=== PATIENT | female | born 1990 | race African-American/Black ===

== ENCOUNTER → 2016-06-26 | Outpatient (CLI) | payer BC ==
[~2016-06-26] MED LIST: ACET65TA; BISOPROLOL; DEPAKOTE; FEROUS SULFATE; FERROUS SULFATE
[2016-06-26 15:17] LABS: BASO % 0.7 % (0.0-1.0); EOS # 0.1 K/mm3 (0.0-0.50); EOS % 1.7 % (0.0-3.0); LYMPH # 2.2 K/mm3 (1.5-6.5); LYMPH % 47.1 % (24.0-44.0); MEAN CORPUSCULAR HEMOGLOBIN 30.1 pg (27.0-33.0); MEAN CORPUSCULAR VOLUME 93.9 fl (80.0-96.0); MONO # 0.2 K/mm3 (0.0-0.8); MONO % 4.3 % (0.0-5.0); NEUTROPHILS # 1.9 K/mm3 (1.8-7.7); NEUTROPHILS % 43.7 % (36.0-66.0); RED CELL DISTRIBUTION WIDTH 13.8 % (11.5-14.5); WHITE BLOOD COUNT 4.4 K/mm3 (4.0-10.0)
[2016-06-26 15:22] LABS: ALBUMIN 4.1 GM/DL (3.2-5.2); ALKALINE PHOSPHATASE 75 U/L (45-117); ALT/SGPT 21 U/L (12-78); ANION GAP 6 MEQ/L (8-16); AST/SGOT 22 U/L (15-37); BILIRUBIN,TOTAL 0.3 MG/DL (0.2-1.0); BLOOD UREA NITROGEN 11 MG/DL (7-18); CALCIUM LEVEL 10.2 MG/DL (8.5-10.1); CARBON DIOXIDE LEVEL 25 MEQ/L (21-32); CHLORIDE LEVEL 108 MEQ/L (98-107); CHOLESTEROL LEVEL 181 MG/DL (<200); CREATININE FOR GFR 0.78 MG/DL (0.55-1.02); FREE T4 1.03 NG/DL (0.76-1.46); GLOMERULAR FILTRATION RATE > 60.0 (>60); GLUCOSE, FASTING 88 MG/DL (70-105); POTASSIUM SERUM 4.3 MEQ/L (3.5-5.1); SODIUM LEVEL 139 MEQ/L (136-145); TOTAL PROTEIN 8.2 GM/DL (6.4-8.2); TRIGLYCERIDES LEVEL 84 MG/DL (<150)
== END ==
LOC: M LAB 13:40
PROVIDERS: ATTEND Physician Assistant
DX: Z00.00 Encounter for general adult medical examination without abnormal findings (principal); Z83.3 Family history of diabetes mellitus

== ENCOUNTER → 2016-06-26 | Outpatient (CLI) | payer BC ==
[2016-06-26 15:32] LABS: BASO # 0.1 K/mm3 (0.0-0.2); BASO % 1.3 % (0.0-1.0); EOS # 0.1 K/mm3 (0.0-0.50); EOS % 2.2 % (0.0-3.0); LARGE UNSTAINED CELL # 0.1 K/mm3 (0.0-0.4); LARGE UNSTAINED CELL % 2.5 % (0.0-4.0); LYMPH % 44.7 % (24.0-44.0); MEAN CORPUSCULAR HEMOGLOBIN 30.5 pg (27.0-33.0); MEAN CORPUSCULAR HGB CONC 32.6 g/dl (32.0-36.5); MEAN CORPUSCULAR VOLUME 93.7 fl (80.0-96.0); MONO # 0.2 K/mm3 (0.0-0.8); MONO % 4.7 % (0.0-5.0); NEUTROPHILS # 1.9 K/mm3 (1.8-7.7); NEUTROPHILS % 44.6 % (36.0-66.0); PLATELET COUNT, AUTOMATED 257 k/mm3 (150-450); RED CELL DISTRIBUTION WIDTH 13.8 % (11.5-14.5); WHITE BLOOD COUNT 4.3 K/mm3 (4.0-10.0)
== END ==
LOC: M LAB 13:45
PROVIDERS: ATTEND Allergy & Immunology Allergy
DX: L50.1 Idiopathic urticaria (principal); L50.3 Dermatographic urticaria; Z91.010 Allergy to peanuts; Z91.011 Allergy to milk products; Z91.012 Allergy to eggs; Z91.018 Allergy to other foods

== ENCOUNTER → 2016-07-15 | Outpatient (REF) | payer BC ==
[2016-07-18 08:42] LABS: THYROID PEROXIDASE ANTIBODY < 28.0 U/ML (<60.0)
== END ==
LOC: M LAB REF 17:00
PROVIDERS: ATTEND Surgery
DX: J01.00 Acute maxillary sinusitis, unspecified (principal)

== ENCOUNTER → 2016-08-23 | Outpatient (CLI) | payer BC | LOC: M LAB 14:14 | PROVIDERS: ATTEND Nurse Practitioner Adult Health | DX: N92.6 Irregular menstruation, unspecified (principal) ==

== ENCOUNTER → 2016-09-14 | Outpatient (CLI) | payer BC ==
--- NOTE | 2016-09-14 13:19 | REP ---
First trimester obstetric ultrasound: Balloon the study is performed with transabdominal imaging. There is an intrauterine gestational sac with a pole. The heart rate is 165 beats per minute. The pole crown-rump length is 1.2 cm corresponding 7 weeks 3 days gestational age. The JOSE FRANCISCO is 04/30/2017. There is no subchorionic hematoma. Maternal adnexa and cul-de-sac demonstrate a left ovarian 5.4 cm cyst, likely a corpus luteum. There is no free fluid in the pelvis. Signed by Rashad Gonzalez MD 09/14/2016 01:10 P
[2016-09-14 14:11] LABS: BASO % 0.3 % (0.0-1.0); EOS # 0.1 K/mm3 (0.0-0.50); EOS % 0.9 % (0.0-3.0); LYMPH % 26.3 % (24.0-44.0); MEAN CORPUSCULAR HEMOGLOBIN 30.4 pg (27.0-33.0); MEAN CORPUSCULAR HGB CONC 32.9 g/dl (32.0-36.5); MEAN CORPUSCULAR VOLUME 92.6 fl (80.0-96.0); MONO # 0.5 K/mm3 (0.0-0.8); MONO % 7.4 % (0.0-5.0); NEUTROPHILS # 4.2 K/mm3 (1.8-7.7); NEUTROPHILS % 62.3 % (36.0-66.0); RED CELL DISTRIBUTION WIDTH 14.4 % (11.5-14.5); WHITE BLOOD COUNT 6.8 K/mm3 (4.0-10.0)
[2016-09-14 15:20] LABS: GLUCOSE,RANDOM 74 MG/DL (LESS THAN 200)
[2016-09-15 09:20] LABS: HBsAg Prenatal NEGATIVE (NEGATIVE)
== END ==
LOC: M RAD 12:24
PROVIDERS: ATTEND Nurse Practitioner Adult Health
DX: Z34.81 Encounter for supervision of other normal pregnancy, first trimester (principal); Z3A.01 Less than 8 weeks gestation of pregnancy; N83.292 Other ovarian cyst, left side

== ENCOUNTER → 2016-11-30 | Outpatient (CLI) | payer BC ==
--- NOTE | 2016-11-30 16:36 | REP ---
Obstetric sonography: History: Supervision of , for anatomy. Findings: Scanning through the gravid uterus demonstrates a viable single intrauterine gestation in a variable lie. motion is observed and heart rate is recorded at 155 beats per minute. An anterior grade 0 placenta is seen without evidence of previa. Amniotic fluid is subjectively normal. Closed cervical length is measured at 4.3 cm transabdominally. There is a 2.9 cm cyst in the left ovary, most likely corpus luteum. No other extrauterine abnormality is observed. No anomaly is seen. The heart and spine views were less than optimal due to position. The following additional anatomic structures are identified and felt to be sonographically unremarkable: cranium, choroid plexus, cavum, cerebellum and posterior fossa, face and profile, lungs, diaphragm, left-sided stomach, abdominal wall cord insertion, three-vessel umbilical cord, kidneys and bladder, upper and lower extremities. Biometry chart: BPD 4.4 cm = 19 weeks 2 days HC 16.6 cm = 19 weeks 2 days AC 14.0 cm = 19 weeks 3 days FL 2.9 cm = 18 weeks 6 days HL 2.9 cm = 19 weeks 3 days HC/AC ratio, normal 1.19. Cephalic index normal 0.73. Estimated weight 279 grams, 0 pounds 9 ounces, 57th percentile for 18 weeks 6 days. Impression: Viable single intrauterine gestation at 19 weeks 2 days by today's composite criteria. JOSE FRANCISCO by today's sonography April 24, 2017. cardiac views and spine views less than optimally achieved today due to position. Signed by Sudhakar Rangel MD 11/30/2016 05:24 P
== END ==
LOC: M RAD 14:22
PROVIDERS: ATTEND Obstetrics & Gynecology
DX: Z36.2 Encounter for other antenatal screening follow-up (principal)

== ENCOUNTER → 2017-02-09 | Outpatient (CLI) | payer BC ==
[2017-02-09 10:06] LABS: BASO % 0.1 % (0.0-1.0); EOS # 0.1 10^3/uL (0.0-0.50); EOS % 0.4 % (0.0-3.0); IMMATURE GRANULOCYTE % 1.3 % (0-0); LYMPH # 1.4 10^3/uL (1.5-6.5); LYMPH % 12.9 % (24.0-44.0); MEAN CORPUSCULAR HGB CONC 33.5 g/dl (32.0-36.5); MEAN CORPUSCULAR VOLUME 98.4 fl (80.0-96.0); MONO # 0.6 10^3/uL (0.0-0.8); NEUTROPHILS # 8.9 10^3/uL (1.8-7.7); NEUTROPHILS % 80.3 % (36.0-66.0); PLATELET COUNT, AUTOMATED 174 10^3/uL (150-450); WHITE BLOOD COUNT 11.2 10^3/uL (4.0-10.0)
--- NOTE | 2017-02-09 15:43 | REP ---
Obstetric ultrasound for anatomy follow-up: The prior study dated 12/28/2016 did not adequately demonstrate the cardiac, four-chamber view of the cardiac right and left ventricular outflow tracts. Study today is performed for follow-up of these structures. There is a single intrauterine gestation in a vertex presentation. There is movement and cardiac activity. heart rate is 155 beats per minute. The placenta is anterior without previa or abruptio with grade zero maturity. The amniotic fluid volume subjectively is normal. The amniotic fluid index of 11.9 (9.2 - 23.1). The maternal adnexa and cul-de-sac are unremarkable. By the ultrasound today gestational age is 30 weeks 0 days with an JOSE FRANCISCO of 04/20/2017. By the first ultrasound 29 weeks 3 days. By LMP 29 weeks 0 days. weight is 1565 grams (3 pounds, 7 ounces). This is the 75th percentile for 29 weeks 0 days. anatomy: On the study today the four-chamber view of the heart and the cardiac right and left ventricular outflow tracts are adequately demonstrated and are unremarkable. The remainder of the anatomy was previously unremarkable. Impression: There are no anomalies. Signed by Rashad Gonzalez MD 02/09/2017 03:34 P
== END ==
LOC: M LAB 08:29
PROVIDERS: ATTEND Obstetrics & Gynecology
DX: Z34.82 Encounter for supervision of other normal pregnancy, second trimester (principal); Z3A.30 30 weeks gestation of pregnancy

== ENCOUNTER → 2017-02-14 | Outpatient (CLI) | payer BC | LOC: M LAB 07:06 | PROVIDERS: ATTEND Obstetrics & Gynecology | DX: R73.02 Impaired glucose tolerance (oral) (principal) ==

== ENCOUNTER → 2017-04-16 | Outpatient (CLI) | payer BC | LOC: M RAD 14:30 | DX: O26.843 Uterine size-date discrepancy, third trimester (principal) ==

== ENCOUNTER → 2017-12-19 | Outpatient (CLI) | payer OTHER ==
[2017-12-19 18:38] LABS: INR 0.85; PROTHROMBIN TIME 11.7 SECONDS (12.1-14.4)
[2017-12-19 18:52] LABS: ALBUMIN/GLOBULIN RATIO 1.11 (1.00-1.93); ALKALINE PHOSPHATASE 91 U/L (45-117); ALT/SGPT 23 U/L (12-78); ANION GAP 5 MEQ/L (8-16); AST/SGOT 18 U/L (7-37); BILIRUBIN,TOTAL 0.2 MG/DL (0.2-1.0); BLOOD UREA NITROGEN 10 MG/DL (7-18); CALCIUM LEVEL 10.6 MG/DL (8.5-10.1); CARBON DIOXIDE LEVEL 26 MEQ/L (21-32); CHLORIDE LEVEL 109 MEQ/L (98-107); CREATININE FOR GFR 0.86 MG/DL (0.55-1.30); GLOMERULAR FILTRATION RATE > 60.0 (>60); GLUCOSE, FASTING 90 MG/DL (70-100); POTASSIUM SERUM 4.5 MEQ/L (3.5-5.1); SODIUM LEVEL 140 MEQ/L (136-145); TOTAL PROTEIN 7.6 GM/DL (6.4-8.2)
== END ==
LOC: M LAB 16:52
DX: E83.52 Hypercalcemia (principal); R79.1 Abnormal coagulation profile
CPT/HCPCS: 80053

== ENCOUNTER → 2018-12-10 | Outpatient (CLI) | payer BC ==
[~2018-12-10] MED LIST changes: +HAIR1TAB2 PO; +IBUP80TA PO; +LEVOTAB10 PO; +METO1TAB87 PO; +PREP1TAB3 PO; +ROBA500T PO; +TRI-TAB PO; +TYLE500T78 PO; +VITA250L PO; +VITA50005 PO
--- NOTE | 2018-12-10 18:17 | REP ---
Clinical: Lower back pain I . Technique: AP, lateral, bilateral oblique, and coned-down views. Findings: Alignment and lordosis is maintained. The vertebral bodies including transverse process and spinous processes are intact and normal. There is no evidence for acute fracture / compression injury or subluxation. No evidence for spondylolysis or spondylolisthesis. No significant degenerative change is noted. Impression: Normal lumbosacral spine radiograph series. Electronically Signed by Tyrell Tovar MD 12/10/2018 06:09 P
--- NOTE | 2018-12-10 19:17 | REP ---
Clinical: Right second digit foreign body. Technique: Real time cowart scale and color evaluation using linear high frequency transducer. Findings: An ovoid anechoic cyst-like structure in the subcutaneous tissues at the base of the second digit along the palmar side is identified and otherwise nonspecific. Correlation with physical examination, history, and x-ray may be warranted. Impression: Well delineated anechoic structure in the subcutaneous tissue. Correlation with x-ray and history/physical examination recommended. Electronically Signed by Tyrell Tovar MD 12/10/2018 07:08 P
== END ==
LOC: M RAD 16:36
PROVIDERS: ATTEND Nurse Practitioner Adult Health
DX: S60.459A Superficial foreign body of unspecified finger, initial encounter (principal); M54.5 Low back pain

== ENCOUNTER 2018-12-25 03:26 | Emergency (ER) | payer BC ==
[~2018-12-25] VITALS: Ht 162.6 cm; Wt 96.8 kg
[2018-12-25] MEDS ORDERED: IBUP-1022 PO ×2 (04:11)
[2018-12-25] MEDS ORDERED: [UNRECOGNIZED DRUG - CODE] PO (04:11)
[2018-12-25] MEDS ORDERED: PHEN-815 PO (04:11)
[2018-12-25 04:39] LABS: INFLUENZA A AMPLIFICATION NEGATIVE (NEGATIVE); INFLUENZA B AMPLIFICATION NEGATIVE (NEGATIVE)
[2018-12-25] MEDS ORDERED: IBUPROFEN 800 MG TAB PO ONE (06:30)
[2018-12-25] MEDS ORDERED: LIDOCAINE VISCOUS 2% SOLN 15ML UDC SS ONE (06:30)
[2018-12-25] MEDS ORDERED: IBUP80TA PO (06:32)
[2018-12-25 06:40] VITALS: BP 111/75
== END 2018-12-25 06:50 | disposition home or self-care (01) ==
LOC: M ED 03:26
DX: J02.9 Acute pharyngitis, unspecified (principal); Z79.899 Other long term (current) drug therapy

== ENCOUNTER 2019-01-20 16:00 | Outpatient (RCR) | payer BC ==
[~2019-01-20 16:00] MED LIST changes: +IBUP-1022 PO; +PHEN-815 PO; +[UNRECOGNIZED DRUG - CODE] PO
== END 2019-01-25 ==
LOC: M PT 16:00
PROVIDERS: ATTEND Nurse Practitioner Adult Health
DX: M54.5 Low back pain (principal)

== ENCOUNTER 2019-02-17 14:30 | Outpatient (RCR) | payer BC | END 2019-02-25 | LOC: M PT 14:30 | PROVIDERS: ATTEND Nurse Practitioner Adult Health | DX: M54.5 Low back pain (principal) ==

== ENCOUNTER 2019-02-27 16:09 | Outpatient (RCR) | payer BC | END 2019-03-28 | LOC: M PT 16:09 | PROVIDERS: ATTEND Nurse Practitioner Adult Health | DX: M54.5 Low back pain (principal) ==

== ENCOUNTER → 2019-09-16 | Outpatient (CLI) | payer BC, MEDICAID | LOC: M LAB 15:08 | PROVIDERS: ATTEND Nurse Practitioner Adult Health | DX: Z11.1 Encounter for screening for respiratory tuberculosis (principal) ==

== ENCOUNTER 2019-10-15 12:44 | Outpatient (RCR) | payer BC, MEDICAID | END 2019-10-27 | disposition home or self-care (01) | LOC: M PT 12:44 | PROVIDERS: ATTEND Physician Assistant | DX: M54.5 Low back pain (principal) ==

== ENCOUNTER → 2019-10-31 | Outpatient (CLI) | payer BC, MEDICAID | LOC: M LAB 14:23 | PROVIDERS: ATTEND Physician Assistant | DX: Z11.9 Encounter for screening for infectious and parasitic diseases, unspecified (principal) ==

== ENCOUNTER → 2020-02-13 | Outpatient (CLI) | payer BC, MEDICAID ==
[2020-02-13 18:07] LABS: HEMOGLOBIN A1c 5.4 %
[2020-02-13 18:11] LABS: BASO % 0.7 % (0.0-1.0); EOS # 0.1 10^3/uL (0.0-0.5); EOS % 1.5 % (0.0-3.0); HEMATOCRIT 40.9 % (36.0-47.0); HEMOGLOBIN 13.5 g/dl (12.0-15.5); LYMPH # 2.6 10^3/uL (1.5-5.0); LYMPH % 43.6 % (24.0-44.0); MEAN CORPUSCULAR HEMOGLOBIN 31.7 pg (27.0-33.0); MONO # 0.6 10^3/uL (0.0-0.8); MONO % 9.3 % (0.0-5.0); NEUTROPHILS # 2.7 10^3/uL (1.5-8.5); NEUTROPHILS % 44.6 % (36.0-66.0); PLATELET COUNT, AUTOMATED 277 10^3/uL (150-450); RED BLOOD COUNT 4.26 10^6/uL (4.00-5.40)
[2020-02-13 18:30] LABS: ALBUMIN 3.7 GM/DL (3.2-5.2); ALT/SGPT 17 U/L (12-78); BILIRUBIN,TOTAL 0.2 MG/DL (0.2-1.0); BLOOD UREA NITROGEN 11 MG/DL (7-18); CALCIUM LEVEL 10.8 MG/DL (8.5-10.1); CARBON DIOXIDE LEVEL 26 MEQ/L (21-32); CHLORIDE LEVEL 108 MEQ/L (98-107); CHOLESTEROL LEVEL 196 MG/DL (<200); CHOLESTEROL RISK RATIO 3.213 (<5); CREATININE FOR GFR 0.86 MG/DL (0.55-1.30); FERRITIN 16 NG/ML (8-252); FREE T4 0.99 NG/DL (0.76-1.46); GLOMERULAR FILTRATION RATE > 60.0 (>60); GLUCOSE, FASTING 99 MG/DL (70-100); HDL CHOLESTEROL 61 MG/DL (>40); IRON (FE) 83 UG/DL (50-170); LDL CHOLESTEROL 99 MG/DL (<100); NON-HDL-C 135 MG/DL; POTASSIUM SERUM 4.4 MEQ/L (3.5-5.1); SODIUM LEVEL 140 MEQ/L (136-145); TOTAL PROTEIN 7.7 GM/DL (6.4-8.2); TRIGLYCERIDES LEVEL 179 MG/DL (<150)
[2020-02-13 18:31] LABS: PTH INTACT 252.1 PG/ML (18.5-88.0); TOTAL 25(OH) VITAMIN D 31.6 NG/ML (30.0-100.0)
== END ==
LOC: M LAB 16:30
PROVIDERS: ATTEND Physician Assistant
DX: Z00.01 Encounter for general adult medical examination with abnormal findings (principal)

== ENCOUNTER → 2020-04-07 | Outpatient (CLI) | payer BC, MEDICAID ==
--- NOTE | 2020-04-07 15:33 | REP ---
INDICATION: HYPERPARATHYROIDISM. COMPARISON: None. TECHNIQUE: 27.2 mCi of technetium 99 M sestamibi is injected and standard 15 and 3 hour delayed images of the neck and upper chest are acquired. A 3D acquisition is acquired for SPECT imaging and reconstructed axial, coronal and sagittal images are reviewed. FINDINGS: Initial 15 minutes delay images demonstrate the expected salivary and thyroid gland uptake bilaterally. Delayed scan images show no evidence of retained uptake in the neck or abnormal mediastinal focus to suggest parathyroid adenoma. SPECT reconstruction and 3D images showed no additional abnormality. IMPRESSION: Negative radionuclide parathyroid scintigraphy. <Electronically signed by Damian Rangel > 04/07/20 [id number]
== END ==
LOC: M RAD 09:56
PROVIDERS: ATTEND Internal Medicine Endocrinology, Diabetes & Metabolism
DX: E21.3 Hyperparathyroidism, unspecified (principal)
CPT/HCPCS: 78803; A9500

== ENCOUNTER → 2020-05-14 | Outpatient (REF) | payer BC, MEDICAID ==
[2020-05-14 19:08] LABS: CALCIUM, URINE 14.1 MG/DL; CREATININE, URINE 58.7 MG/DL
== END ==
LOC: M LAB REF 13:54
PROVIDERS: ATTEND Internal Medicine Endocrinology, Diabetes & Metabolism
DX: E21.3 Hyperparathyroidism, unspecified (principal)

== ENCOUNTER → 2020-10-14 | Outpatient (CLI) | payer BC, MEDICAID | LOC: M LAB 12:48 | PROVIDERS: ATTEND Surgery | DX: E21.3 Hyperparathyroidism, unspecified (principal) ==

== ENCOUNTER 2020-10-15 21:27 | Emergency (ER) | payer BC, MEDICAID ==
[~2020-10-15] VITALS: Ht 162.6 cm; Wt 103.8 kg
[2020-10-15 21:28] VITALS: BP 144/95
== END 2020-10-15 22:16 | disposition left against medical advice (07) ==
LOC: M ED 21:27
DX: Z53.21 Procedure and treatment not carried out due to patient leaving prior to being seen by health care provider (principal)

== ENCOUNTER → 2020-12-20 | Outpatient (CLI) | payer BC, MEDICAID ==
[2020-12-20 15:43] LABS: BLOOD UREA NITROGEN 12 MG/DL (7-18); CALCIUM LEVEL 9.3 MG/DL (8.5-10.1); CARBON DIOXIDE LEVEL 28 MEQ/L (21-32); CHLORIDE LEVEL 107 MEQ/L (98-107); CREATININE FOR GFR 0.79 MG/DL (0.55-1.30); GLOMERULAR FILTRATION RATE > 60.0 (>60); GLUCOSE, FASTING 82 MG/DL (70-100); POTASSIUM SERUM 4.2 MEQ/L (3.5-5.1); SODIUM LEVEL 139 MEQ/L (136-145)
[2020-12-20 15:50] LABS: TOTAL 25(OH) VITAMIN D 24.1 NG/ML (30.0-100.0)
== END ==
LOC: M LAB 14:31
PROVIDERS: ATTEND Nurse Practitioner Family
DX: E21.3 Hyperparathyroidism, unspecified (principal); E55.9 Vitamin D deficiency, unspecified

== ENCOUNTER → 2020-12-20 | Outpatient (CLI) | payer BC, MEDICAID ==
[2020-12-20 15:21] LABS: BASO # 0.1 10^3/uL (0.0-0.2); EOS # 0.1 10^3/uL (0.0-0.5); EOS % 2.5 % (0.0-3.0); HEMATOCRIT 37.9 % (36.0-47.0); HEMOGLOBIN 12.3 g/dl (12.0-15.5); LYMPH # 2.3 10^3/uL (1.5-5.0); MEAN CORPUSCULAR HEMOGLOBIN 30.7 pg (27.0-33.0); MEAN CORPUSCULAR HGB CONC 32.5 g/dl (32.0-36.5); MEAN CORPUSCULAR VOLUME 94.5 fl (80.0-96.0); MONO # 0.5 10^3/uL (0.0-0.8); MONO % 9.9 % (2.0-8.0); NEUTROPHILS # 2.3 10^3/uL (1.5-8.5); NEUTROPHILS % 43.2 % (36.0-66.0); PLATELET COUNT, AUTOMATED 373 10^3/uL (150-450); RED BLOOD COUNT 4.01 10^6/uL (4.00-5.40); WHITE BLOOD COUNT 5.3 10^3/uL (4.0-10.0)
[2020-12-20 15:52] LABS: ALBUMIN 3.7 GM/DL (3.2-5.2); ALT/SGPT 21 U/L (12-78); BILIRUBIN,TOTAL 0.3 MG/DL (0.2-1.0); BLOOD UREA NITROGEN 12 MG/DL (7-18); CALCIUM LEVEL 9.5 MG/DL (8.5-10.1); CARBON DIOXIDE LEVEL 27 MEQ/L (21-32); CHLORIDE LEVEL 107 MEQ/L (98-107); CHOLESTEROL LEVEL 182 MG/DL (<200); CHOLESTEROL RISK RATIO 3.084 (<5); CREATININE FOR GFR 0.78 MG/DL (0.55-1.30); GLOMERULAR FILTRATION RATE > 60.0 (>60); GLUCOSE, FASTING 80 MG/DL (70-100); HDL CHOLESTEROL 59 MG/DL (>40); LDL CHOLESTEROL 98 MG/DL (<100); NON-HDL-C 123 MG/DL; POTASSIUM SERUM 4.2 MEQ/L (3.5-5.1); SODIUM LEVEL 139 MEQ/L (136-145); TOTAL PROTEIN 7.5 GM/DL (6.4-8.2); TRIGLYCERIDES LEVEL 126 MG/DL (<150)
[2020-12-20 20:56] LABS: HEMOGLOBIN A1c 5.3 %
== END ==
LOC: M LAB 14:29
PROVIDERS: ATTEND Physician Assistant
DX: R51.9 Headache, unspecified (principal); Z13.1 Encounter for screening for diabetes mellitus; Z13.220 Encounter for screening for lipoid disorders

== ENCOUNTER → 2020-12-30 | Outpatient (REF) | payer BC, MEDICAID | LOC: M LAB REF 16:43 | PROVIDERS: ATTEND Physician Assistant | DX: R50.9 Fever, unspecified (principal); R05.9 Cough, unspecified ==

== ENCOUNTER → 2021-06-10 | Outpatient (CLI) | payer BC, MEDICAID ==
[2021-06-10 15:37] LABS: BASO % 0.5 % (0.0-1.0); EOS # 0.1 10^3/uL (0.0-0.5); EOS % 1.6 % (0.0-3.0); HEMATOCRIT 36.4 % (36.0-47.0); HEMOGLOBIN 11.9 g/dl (12.0-15.5); LYMPH # 2.2 10^3/uL (1.5-5.0); LYMPH % 38.7 % (24.0-44.0); MEAN CORPUSCULAR HEMOGLOBIN 29.3 pg (27.0-33.0); MEAN CORPUSCULAR HGB CONC 32.7 g/dl (32.0-36.5); MEAN CORPUSCULAR VOLUME 89.7 fl (80.0-96.0); MONO # 0.4 10^3/uL (0.0-0.8); MONO % 7.7 % (2.0-8.0); NEUTROPHILS # 2.8 10^3/uL (1.5-8.5); NEUTROPHILS % 51.1 % (36.0-66.0); PLATELET COUNT, AUTOMATED 320 10^3/uL (150-450); RED BLOOD COUNT 4.06 10^6/uL (4.00-5.40); WHITE BLOOD COUNT 5.6 10^3/uL (4.0-10.0)
[2021-06-10 16:06] LABS: HEMOGLOBIN A1c 5.2 %
[2021-06-10 16:07] LABS: ALBUMIN 3.9 GM/DL (3.2-5.2); ALT/SGPT 20 U/L (12-78); BILIRUBIN,TOTAL 0.4 MG/DL (0.2-1.0); BLOOD UREA NITROGEN 10 MG/DL (7-18); CALCIUM LEVEL 9.5 MG/DL (8.5-10.1); CARBON DIOXIDE LEVEL 26 MEQ/L (21-32); CHLORIDE LEVEL 108 MEQ/L (98-107); CHOLESTEROL LEVEL 191 MG/DL (<200); FERRITIN 6 NG/ML (8-252); GLOMERULAR FILTRATION RATE > 60.0 (>60); GLUCOSE, FASTING 100 MG/DL (70-100); HDL CHOLESTEROL 62 MG/DL (>40); IRON (FE) 123 UG/DL (50-170); LDL CHOLESTEROL 107 MG/DL (<100); NON-HDL-C 129 MG/DL; PERCENT SATURATION 29.5 % (13.2-45.0); SODIUM LEVEL 138 MEQ/L (136-145); THYROID STIMULATING HORMONE 0.828 uIU/ML (0.358-3.740); TOTAL IRON BINDING CAPACITY 417 UG/DL (250-450); TOTAL PROTEIN 7.6 GM/DL (6.4-8.2); TRIGLYCERIDES LEVEL 112 MG/DL (<150)
[2021-06-10 18:47] LABS: APPEARANCE, URINE CLEAR (CLEAR); BACTERIA, URINE AUTO NEGATIVE (NEGATIVE); BILIRUBIN, URINE AUTO NEGATIVE (NEGATIVE); BLOOD, URINE BLOOD NEGATIVE (NEGATIVE); COLOR, URINE YELLOW (YELLOW); GLUCOSE, URINE (UA) AUTO NEGATIVE (NEGATIVE); KETONE, URINE AUTO NEGATIVE (NEGATIVE); LEUKOCYTE ESTERASE, URINE AUTO NEGATIVE (NEGATIVE); MUCUS, URINE SMALL (NEGATIVE); NITRITE, URINE AUTO NEGATIVE (NEGATIVE); PROTEIN, URINE AUTO NEGATIVE (NEGATIVE); RBC, URINE AUTO 1 /HPF (0-3); SPECIFIC GRAVITY URINE AUTO 1.018 (1.002-1.035); SQUAMOUS EPITHELIAL CELL UR AU 5 /HPF (0-6); UROBILINOGEN, URINE AUTO 0.2 mg/dL (0.0-2.0); WBC, URINE AUTO 1 /HPF (0-3)
== END ==
LOC: M LAB 13:53
PROVIDERS: ATTEND Physician Assistant
DX: R51.9 Headache, unspecified (principal)

== ENCOUNTER → 2021-10-13 | Outpatient (CLI) | payer BC, MEDICAID ==
[2021-10-13 13:12] LABS: BLOOD UREA NITROGEN 8 MG/DL (7-18); CARBON DIOXIDE LEVEL 23 MEQ/L (21-32); CHLORIDE LEVEL 109 MEQ/L (98-107); CREATININE FOR GFR 0.82 MG/DL (0.55-1.30); GLOMERULAR FILTRATION RATE > 60.0 (>60); GLUCOSE, FASTING 103 MG/DL (70-100); POTASSIUM SERUM 4.1 MEQ/L (3.5-5.1); SODIUM LEVEL 135 MEQ/L (136-145)
[2021-10-13 13:46] LABS: PTH INTACT 46.4 PG/ML (18.5-88.0); TOTAL 25(OH) VITAMIN D 40.4 NG/ML (30.0-100.0)
== END ==
LOC: M LAB 12:06
PROVIDERS: ATTEND Nurse Practitioner Family
DX: E21.3 Hyperparathyroidism, unspecified (principal)

== ENCOUNTER → 2021-12-19 | Outpatient (CLI) | payer BC, MEDICAID ==
[2021-12-19 12:18] LABS: HEMATOCRIT 34.4 % (36.0-47.0); HEMOGLOBIN 10.8 g/dl (12.0-15.5); MEAN CORPUSCULAR HEMOGLOBIN 27.6 pg (27.0-33.0); MEAN CORPUSCULAR HGB CONC 31.4 g/dl (32.0-36.5); MEAN CORPUSCULAR VOLUME 87.8 fl (80.0-96.0); PLATELET COUNT, AUTOMATED 316 10^3/uL (150-450); RED BLOOD COUNT 3.92 10^6/uL (4.00-5.40); WHITE BLOOD COUNT 5.3 10^3/uL (4.0-10.0)
[2021-12-19 13:03] LABS: HEMOGLOBIN A1c 5.3 %
[2021-12-19 13:25] LABS: ALBUMIN 3.6 GM/DL (3.2-5.2); ALT/SGPT 17 U/L (12-78); BILIRUBIN,TOTAL 0.3 MG/DL (0.2-1.0); BLOOD UREA NITROGEN 9 MG/DL (7-18); CALCIUM LEVEL 8.6 MG/DL (8.5-10.1); CARBON DIOXIDE LEVEL 26 MEQ/L (21-32); CHLORIDE LEVEL 109 MEQ/L (98-107); CHOLESTEROL LEVEL 176 MG/DL (<200); CHOLESTEROL RISK RATIO 2.707 (<5); CREATININE FOR GFR 0.93 MG/DL (0.55-1.30); FERRITIN 4 NG/ML (8-252); GLOMERULAR FILTRATION RATE > 60.0 (>60); GLUCOSE, FASTING 93 MG/DL (70-100); HDL CHOLESTEROL 65 MG/DL (>40); IRON (FE) 27 UG/DL (50-170); LDL CHOLESTEROL 98 MG/DL (<100); NON-HDL-C 111 MG/DL; PERCENT SATURATION 6.1 % (13.2-45.0); POTASSIUM SERUM 4.4 MEQ/L (3.5-5.1); SODIUM LEVEL 138 MEQ/L (136-145); TOTAL IRON BINDING CAPACITY 446 UG/DL (250-450); TOTAL PROTEIN 7.4 GM/DL (6.4-8.2); TRIGLYCERIDES LEVEL 64 MG/DL (<150)
[2021-12-19 13:55] LABS: VITAMIN B12 LEVEL 473 PG/ML (247-911)
== END ==
LOC: M LAB 11:39
PROVIDERS: ATTEND Physician Assistant
DX: D64.9 Anemia, unspecified (principal)

== ENCOUNTER → 2022-02-06 | Outpatient (CLI) | payer BC, MEDICAID ==
[~2022-02-06] MED LIST changes: +IRON65TA2 PO; +NOXI1TAB PO
== END ==
LOC: M WHC 13:12
PROVIDERS: ATTEND Obstetrics & Gynecology
DX: N92.1 Excessive and frequent menstruation with irregular cycle (principal); D25.9 Leiomyoma of uterus, unspecified

== ENCOUNTER → 2022-02-15 | Outpatient (REF) | payer BC, MEDICAID | LOC: M LAB REF 10:58 | PROVIDERS: ATTEND Physician Assistant | DX: B34.9 Viral infection, unspecified (principal) ==

== ENCOUNTER → 2022-03-08 | Outpatient (CLI) | payer BC, MEDICAID ==
[2022-03-08 15:52] LABS: BASO % 0.7 % (0.0-1.0); EOS # 0.1 10^3/uL (0.0-0.5); EOS % 2.6 % (0.0-3.0); HEMATOCRIT 34.8 % (36.0-47.0); HEMOGLOBIN 10.8 g/dl (12.0-15.5); LYMPH # 2.1 10^3/uL (1.5-5.0); LYMPH % 45.3 % (24.0-44.0); MEAN CORPUSCULAR HEMOGLOBIN 26.9 pg (27.0-33.0); MEAN CORPUSCULAR VOLUME 86.6 fl (80.0-96.0); MONO # 0.4 10^3/uL (0.0-0.8); MONO % 9.5 % (2.0-8.0); NEUTROPHILS # 1.9 10^3/uL (1.5-8.5); NEUTROPHILS % 41.7 % (36.0-66.0); PLATELET COUNT, AUTOMATED 302 10^3/uL (150-450); RED BLOOD COUNT 4.02 10^6/uL (4.00-5.40); WHITE BLOOD COUNT 4.6 10^3/uL (4.0-10.0)
[2022-03-08 16:06] LABS: INR 0.83; PROTHROMBIN TIME 11.6 SECONDS (12.5-14.5)
[2022-03-08 16:23] LABS: ALBUMIN 3.6 G/DL (3.2-5.2); ALKALINE PHOSPHATASE 47 U/L (46-116); ALT/SGPT 15 U/L (7.0-40); AST/SGOT 20 U/L (<34); BILIRUBIN,TOTAL 0.3 MG/DL (0.3-1.2); BLOOD UREA NITROGEN 11 MG/DL (9-23); CALCIUM LEVEL 9.2 MG/DL (8.5-10.1); CARBON DIOXIDE LEVEL 26 MMOL/L (20-31); CHLORIDE LEVEL 104 MMOL/L (98-107); CREATININE FOR GFR 0.84 MG/DL (0.55-1.30); GLOMERULAR FILTRATION RATE > 60.0 (>60); GLUCOSE, FASTING 92 MG/DL (60-100); POTASSIUM SERUM 4.1 MMOL/L (3.5-5.1); SODIUM LEVEL 138 MMOL/L (136-145); TOTAL PROTEIN 7.1 G/DL (5.7-8.2)
== END ==
LOC: M LAB 14:54
PROVIDERS: ATTEND Internal Medicine Hematology & Oncology
DX: D68.00 Von Willebrand disease, unspecified (principal)

== ENCOUNTER → 2022-03-08 | Outpatient (CLI) | payer BC, MEDICAID ==
[2022-03-08 15:52] LABS: HEMATOCRIT 34.1 % (36.0-47.0); HEMOGLOBIN 10.8 g/dl (12.0-15.5); MEAN CORPUSCULAR HEMOGLOBIN 27.1 pg (27.0-33.0); MEAN CORPUSCULAR HGB CONC 31.7 g/dl (32.0-36.5); MEAN CORPUSCULAR VOLUME 85.5 fl (80.0-96.0); PLATELET COUNT, AUTOMATED 317 10^3/uL (150-450); RED BLOOD COUNT 3.99 10^6/uL (4.00-5.40)
[2022-03-08 16:24] LABS: HCG, SERUM QUANTITATIVE < 2.6 MIU/ML (<4.2)
[2022-03-08 16:28] LABS: FOLLICLE STIMULATING HORMONE 8.6 mIU/ML; FREE T4 0.98 NG/DL (0.89-1.76)
[2022-03-08 16:29] LABS: LUTEINIZING HORMONE 3.5 mIU/ML
[2022-03-09 07:23] LABS: WHITE BLOOD COUNT 4.6 10^3/uL (4.0-10.0)
[2022-03-13 09:07] LABS: F8 ACTIVITY FOR F8 PANEL 119 % (56-140); F8 ACTIVITY vWB FOR F8 PANEL 28 % (50-200); F8 ANTIGEN FOR F8 PANEL 52 % (50-200)
== END ==
LOC: M LAB 14:52
PROVIDERS: ATTEND Obstetrics & Gynecology
DX: N92.1 Excessive and frequent menstruation with irregular cycle (principal)

== ENCOUNTER → 2022-03-08 | Outpatient (CLI) | payer BC, MEDICAID | LOC: M RAD 14:56 | PROVIDERS: ATTEND Physician Assistant | DX: M94.0 Chondrocostal junction syndrome [Tietze] (principal) ==

== ENCOUNTER 2022-04-04 08:47 | Emergency (ER) | payer BC, MEDICAID ==
[~2022-04-04] VITALS: Ht 162.6 cm; Wt 104.5 kg
[2022-04-04] MEDS ORDERED: fentaNYL 100 MCG/2 ML INJECTION IV PRN (09:30)
[2022-04-04] MEDS ORDERED: ISOVUE-370 76% 100ML VIAL As Ordered ONE (09:54)
[2022-04-04] MEDS ORDERED: KETOROLAC 30 MG/ML 1ML VIAL IV ONE (11:05)
[2022-04-04 12:30] VITALS: BP 142/84
[2022-04-04] MEDS ORDERED: KETO10TAB PO (12:37)
== END 2022-04-04 13:13 | disposition home or self-care (01) ==
LOC: M ED 08:47 → EDBD 08:47 → M ED 13:13
DX: S70.02XA Contusion of left hip, initial encounter (principal); S40.012A Contusion of left shoulder, initial encounter; W10.9XXA Fall (on) (from) unspecified stairs and steps, initial encounter; K21.9 Gastro-esophageal reflux disease without esophagitis; Z79.83 Long term (current) use of bisphosphonates; Z79.1 Long term (current) use of non-steroidal anti-inflammatories (NSAID); Z79.899 Other long term (current) drug therapy
CPT/HCPCS: 70450; 71260; 72125; 73030; 74177; 80047; 84702; 96374; 99284; J1885

== ENCOUNTER → 2022-04-12 | Outpatient (CLI) | payer BC, MEDICAID ==
[~2022-04-12] MED LIST changes: +KETO10TAB PO
== END ==
LOC: M SOG 08:08
PROVIDERS: ATTEND Orthopaedic Surgery Adult Reconstructive Orthopaedic Surgery
DX: M25.552 Pain in left hip (principal); M54.50 Low back pain, unspecified